=== PATIENT | female | born 1965 | race Two or more races ===

== ENCOUNTER 2017-07-03 15:53 | Emergency (ER) | payer MEDICAID, OTHER ==
[~2017-07-03] VITALS: Ht 160 cm; Wt 81.4 kg
[~2017-07-03 15:53] MED LIST: CIPR500T4 PO; HYDR-906 PO; ONDA4TAB8 PO
[2017-07-03 16:02] VITALS: Ht 160 cm; Wt 81.4 kg
--- NOTE | 2017-07-03 16:28 | ERD ---
ER Documentation Chief Complaint Chief Complaint c/o vaginal itching, generalized body itching, back pain HPI This 52-year-old female presents to emergency department for evaluation of external vaginal itching, dysuria, pt left lumbar back pain, symptoms started greater than 2 weeks patient reports IUD placed 2 years ago. Blood noted on toilet paper unsure of its hematuria or coming from the vagina. ROS All systems reviewed and are negative except as per history of present illness. Medications Home Meds Active Scripts Ciprofloxacin Hcl* (Ciprofloxacin Hcl*) 500 Mg Tablet, 500 MG PO BID for 7 Days , #14 TAB Prov:BETH,ONEYDA 07/03/17 Metronidazole* (Flagyl*) 500 Mg Tablet, 500 MG PO BID for 7 Days, #14 TAB Prov:BETH,ONEYDA 07/03/17 Ondansetron Hcl* (Zofran*) 4 Mg Tablet, 4 MG PO Q6H Y for NAUSEA AND OR VOMITING , #10 TAB Prov:MICHA LOPEZ PA-C 03/02/15 Hydrocodone Bit-Acetaminophen ([place]) 5-325 Mg Tablet, 1 TAB PO Q4H Y for PAIN, #10 TAB Prov:MICHA LOPEZ PA-C 03/02/15 Ciprofloxacin Hcl* (Ciprofloxacin Hcl*) 500 Mg Tablet, 500 MG PO BID for 10 Days , TAB Prov:MICHA LOPEZ PA-C 03/02/15 Allergies Allergies: Coded Allergies: penicillin (Verified Allergy, Unknown, 03/02/15) PMhx/Soc Hx Alcohol Use: No Hx Substance Use: No Hx Tobacco Use: No Physical Exam Vitals Vital Signs Date Time Temp Pulse Resp B/P Pulse Ox O2 Delivery O2 Flow Rate FiO2 07/03/17 20:45 98.8 80 20 98 Room Air 07/03/17 16:02 98.1 87 18 138/83 97 VSS triage notes reviewed Physical Exam Const: Well nourished, well hydrated, well appearing 52-year-old female in no acute distress ENT: Normal External Ears, Nose and Mouth. Resp: Respirations even and unlabored, no respiratory distress Pelvic Exam: Floor Attendant present Abdomen: Pelvic tenderness External Genitalia: Excoriated genitalia Speculum: Excoriated erythemic vaginal mucosa, abnormal thin white cervical discharge Bimanual: No adnexal masses or tenderness, No CMT Skin: Bilateral lower extremity discolored dry plaques Neur: Awake and alert Psych: Normal Mood and Affect Results 24 hrs Laboratory Tests Test 07/03/17 16:41 Urine Color YELLOW Urine Clarity CLOUDY Urine pH 5.0 Urine Specific [place] 1.015 Urine Ketones NEGATIVEmg/dL Urine Nitrite NEGATIVEmg/dL Urine Bilirubin NEGATIVEmg/dL Urine Urobilinogen NEGATIVEmg/dL Urine Leukocyte Esterase 2+Giselle/ul Urine Microscopic RBC 7/HPF Urine Microscopic WBC 6/HPF Urine Squamous Epithelial Cells FEW/HPF Urine Bacteria FEW/HPF Urine Hemoglobin 2+mg/dL Urine Glucose NEGATIVEmg/dL Urine Total Protein NEGATIVEmg/dl Chlamydia trachomatis RNA (TMA) NOT DETECTED Chlamydia/GC Comment SEE NOTE Neisseria gonorrhoeae RNA (TMA) NOT DETECTED Current Medications Medications (Trade) Dose Ordered Sig/Dustin Route PRN Reason Start Time Stop Time Status Last Admin Dose Admin Acetaminophen (Tylenol Tab) 650 mg ONCE ONCE PO 07/03/17 16:30 07/03/17 16:32 DC 07/03/17 16:41 Loratadine (Claritin) 10 mg ONCE ONCE PO 07/03/17 16:30 07/03/17 16:32 DC 07/03/17 16:46 Azithromycin (Zithromax) 2,000 mg ONCE PO 07/03/17 19:30 07/03/17 20:48 DC 07/03/17 20:07 Gentamicin Sulfate (Gentamicin) 240 mg ONCE IM 07/03/17 19:30 07/03/17 20:48 DC 07/03/17 20:07 Urinalysis positive for evidence of infection, plan to add on GC and Chlamydia to laboratory urine. Pharmacy consulted to review gentamicin, CDC guidelines in place, her penicillin allergy. Procedures/MDM RUN DATE: 07/03/17 [facility] PAGE 1 RUN TIME: [id number] [place] [address] Jomar Yee M.D. [employer] FLACO#: [id number] Name: NORMAN ORDOÑEZ Age/Sex: 52/F Attend Dr: FUNMILAYO KOHLER DO Acct: [id number] MR# : [id number] : 1965 Location: [facility] Admit: 07/03/17 Specimen: [id number] Status: Complete Palomo: 07/03/17 Rcvd: 07/03 Source: VAGINAL Sp Descrip: Procedure Result Microbiology WET MOUNT Final WHITE BLOOD CELLS 2+ BACTERIA 1+ EPITHELIAL CELLS 3+ YEAST NONE SEEN CLUE CELLS CLUE CELLS SEEN MOTILE TRICHOMONAS MOTILE TRICHOMONAS SEEN This 52-year-old female presents to emergency department with complaint of external vaginal itching, generalized body itching, and dysuria, patient reports that body itching is a chronic problem, and making her very uncomfortable. Patient reports that she has no current primary care physician and was told to come to the emergency department for treatment. Patient reports possible hematuria versus vaginal bleeding history of IUD placement 2 years ago, denies any abnormal vaginal discharge, fever, reports chills. His urinalysis shows evidence of leukocytosis, microscopic hematuria, for nitrates, findings are with a urinary tract infection. Pelvic exam positive for excoriated external genitalia, thin white watery vaginal discharge sent to lab for culture and wet mount. Vaginal culture is positive for clue cells suggestive of bacterial vaginitis, and Trichomonas suggestive of Trichomonas vaginitis, plan to treat with Cipro 500 mg 1 tab p.o. twice daily 7 days, Flagyl 500 mg 1 tab p.o. twice daily 7 days. prophylactically treated with Rocephin 250 mg IM, and 1000 mg of azithromycin for gonorrhea and chlamydia. Add on urine test for GC and chlamydia Patient was instructed to abstain from sexual intercourse, that she must tell her partner that she is positive for an STI, Patient is stable with no new complaints during ER course, clinically there is no current evidence to suggest pelvic inflammatory disease, pyelonephritis,or any other emergent condition appearing to require further evaluation or hospitalization. I feel the patient is stable for discharge at this time. I have discussed results, examination findings, the treatment plan with the patient and family present prior to discharge. Indications for emergent reevaluation, side effects of medication were also discussed. All questions were answered. Patient verbalizes understanding and agrees with plan of care. Departure Diagnosis: Primary Impression: Bacterial vaginosis Additional Impressions: Trichomonas vaginalis (TV) infection UTI (urinary tract infection) Urinary tract infection type: acute cystitis Hematuria presence: with hematuria Qualified Code: N30.01 - Acute cystitis with hematuria Condition: Good Patient Instructions: Trichomonas Vaginalis (Discharge), Vaginitis, Bacterial, What Are Sexually Transmitted Diseases (STDs)? Additional Instructions: Thank you for for coming to [facility] for your care today. Please ask your nurse or provider if you have questions about your care today and do not leave until all your questions have been answered. Please use any medications given as directed and follow-up with your doctor (or the doctor you were referred to) in the next 2-3 days. If you do not have a primary care doctor you may follow up at the [facility] (listed below). You may also use motrin and tylenol as needed for fever and/or pain unless instructed otherwise by your provider or nurse. Indications for more urgent follow-up have been discussed, but you may return to the Emergency Department at ANY time for any worrisome or worsening symptoms. If you have abdominal pain, please know that no test or exam you received is perfect and you should follow up within 8 hours for continued pain. If you had any imaging studies today, such as an X-Ray or CT Scan, these studies will be reviewed later by a radiologist. You will be called if there are important findings that were not identified today, so make sure the contact information you provided at registration is correct. If you received any narcotic pain control medicine today, such as Vicodin, Morphine or Dilaudid, your coordination and judgment may be affected for a number of hours. Please do not drive or operate heavy machinery, and you may want someone to assist you at home. If you were given a prescription for narcotic medication, be aware that it is very addictive- use sparingly and only if necessary. ONEYDA CAMPOS Jul 03, 2017 16:28
[2017-07-03] MEDS ORDERED: ACETAMINOPHEN 325 MG TAB PO ONE (16:30)
[2017-07-03] MEDS ORDERED: LORATADINE 10 MG TAB PO ONE (16:30)
[2017-07-03 17:46] LABS: ADD UMIC YES; UR ASCORBIC ACID NEGATIVE (NEGATIVE); UR BACTERIA FEW /HPF (NONE SEEN); UR BILIRUBIN (Dip) NEGATIVE (NEGATIVE); UR BLOOD (Dip) 2+ mg/dL (NEGATIVE); UR CLARITY CLOUDY (CLEAR); UR COLOR YELLOW (YELLOW); UR GLUCOSE (Dip) NEGATIVE (NEGATIVE); UR KETONES (Dip) NEGATIVE (NEGATIVE); UR LEUKOCYTE ESTERASE (Dip) 2+ Leu/ul (NEGATIVE); UR NITRITE (Dip) NEGATIVE (NEGATIVE); UR RBC 7 /HPF (0-5); UR SPECIFIC GRAVITY (Dip) 1.015 (1.003-1.030); UR SQUAMOUS EPITHELIAL CELL FEW /HPF (FEW); UR TOTAL PROTEIN (Dip) NEGATIVE (NEGATIVE); UR UROBILINOGEN (Dip) NEGATIVE (NEGATIVE)
[2017-07-03] MEDS ORDERED: AZITHROMYCIN 250 MG TAB PO SCH (19:30)
[2017-07-03] MEDS ORDERED: GENTAMICIN 80 MG INJ IM SCH (19:30)
[2017-07-03] MEDS ORDERED: CIPR500T4 PO (19:39)
[2017-07-03] MEDS ORDERED: METR500T PO (19:39)
[2017-07-03 20:45] VITALS: PULSE 80; RESP 20; TEMP 98.8
== END 2017-07-03 20:20 | disposition home or self-care (01) ==
LOC: FTE 15:53
DX: N76.0 Acute vaginitis (principal); A59.01 Trichomonal vulvovaginitis; N30.01 Acute cystitis with hematuria
CPT/HCPCS: 81001; 87081; 87210; 87591; J1580; Z7502; Z7610; 99284